=== PATIENT | female | born 1980 ===

== ENCOUNTER 2020-06-11 07:25 | Day surgery (SDC) | payer OTHER ==
[~2020-06-11 07:25] MED LIST: SYNTHROID150 MCG PO
[2020-06-11] MEDS ORDERED: ULTRACET PO (13:20)
[2020-06-11] MEDS ORDERED: KEFLEX500 MG PO (13:20)
[2020-06-11] MEDS ORDERED: PROTONIX40 MG PO (13:21)
== END 2020-06-11 17:25 | disposition home or self-care (01) ==
LOC: CIR.AMB 07:25 → ADM 08:00 → CIR.AMB 08:00
PROVIDERS: ATTEND Surgery
DX: K80.10 Calculus of gallbladder with chronic cholecystitis without obstruction (principal); K66.0 Peritoneal adhesions (postprocedural) (postinfection); Z20.828 Contact with and (suspected) exposure to other viral communicable diseases